=== PATIENT | male | born 1940 | race Caucasian/White ===

== ENCOUNTER 2017-08-03 08:57 | Observation (INO) ==
[2017-08-03] MEDS ORDERED: Aspirin 81 MG TAB.CHEW PO ONE (08:58)
--- NOTE | 2017-08-03 09:04 | Emergency Department Note ---
Disposition Clinical Impression: Chest pain Qualifiers: Chest pain type: unspecified Qualified Code(s): R07.9 - Chest pain, unspecified Disposition: Admitted As Inpatient Condition: Fair Referrals: David Estrada MD [Primary Care Provider] - Forms: ED Satisfaction Letter Time of Disposition: 10:12 Chest Pain HPI - General Chief Complaint: ED Chest Pain Stated Complaint: chest pain Time Seen by Provider: 08/03/17 08:58 Source: patient, EMS Mode of arrival: EMS Limitations: no limitations Vital Signs Reviewed: Yes Nursing Notes Reviewed: Yes - History of Present Illness HPI Narrative: 76-year-old male who awoke in the night with nausea developed some chest heaviness at about 2 AM. Patient has a history of previous ME had stents back in 2010. The patient states his previous ME he did not have EKG changes. States this is similar to his previous ME. Pt complaint: chest pain Onset (ago): hour(s) (7) Duration: constant Onset: during rest Pain Location: substernal, left chest Severity: moderate Quality: heaviness Pain Radiation: none Improves with: nothing Worsens with: nothing Context: history of DVT/PE, other (History of previous ME) Associated symptoms: Reports: nausea Treatments prior to arrival chest pain: none - Related Data Home Medications Medication Instructions Recorded Confirmed Aspirin 81 mg PO DAILY 09/27/15 08/03/17 Atorvastatin [Lipitor] 80 mg PO HS 09/27/15 08/03/17 Carvedilol [Coreg] 6.25 mg PO BIDWM 09/27/15 08/03/17 Lansoprazole [Prevacid] 30 mg PO DAILY 09/27/15 08/03/17 Lisinopril [Zestril] 10 mg PO DAILY 09/27/15 08/03/17 Phenytoin [Dilantin] 400 mg PO HS 09/27/15 08/03/17 Cholecalciferol (D-3) [Vitamin D] 3,000 unit PO DAILY 12/04/16 08/03/17 Fluticasone Propionate Nasal 2 spray NS BID 12/04/16 08/03/17 [Flonase] Nitroglycerin [Nitrostat] 0.4 mg SL AD PRN 12/04/16 08/03/17 Venlafaxine HCl [Venlafaxine HCl 75 mg PO DAILY 12/04/16 08/03/17 ER] Omega3,5,6,7,9 No.1/[place] Oil 2 each PO QAM 12/30/16 08/03/17 [Complete [place] Softgel] Warfarin [Coumadin] 5 mg PO SUTUTHSA 03/16/17 05/01/17 Meclizine [Antivert] 25 - 50 mg PO TID PRN 05/01/17 08/03/17 Sulfamethoxazole/Trimeth DS 1 tab PO BID 08/03/17 08/03/17 [Bactrim DS] Warfarin [Coumadin] 2.5 mg PO MOWEFR 08/03/17 08/03/17 Allergies Allergy/AdvReac Type Severity Reaction Status Date / Time morphine Allergy Hives Verified 03/16/17 18:14 Penicillins [PCN] Allergy Hives Verified 03/16/17 18:14 propoxyphene [From Darvon] Allergy Hives Verified 03/16/17 18:14 All systems ED: reviewed and negative except as stated. Constitutional: Denies: fever, chills, weakness, weight change Eyes: Denies: eye pain, eye discharge, vision change ENT ED: Denies: ear pain, throat pain, dental pain, hearing loss, epistaxis, congestion, dysphagia Cardiovascular: Reports: chest pain. Denies: palpitations, dyspnea on exertion , edema, syncope Respiratory: Denies: cough, dyspnea, wheezes, hemoptysis, stridor Gastrointestinal: Reports: nausea. Denies: abdominal pain, vomiting, diarrhea, constipation, hematemesis, melena, hematochezia Genitourinary: Denies: urgency, dysuria, frequency, hematuria Musculoskeletal: Denies: back pain, neck pain, arthralgia, myalgia Integumentary: Denies: rash, abrasion, lesions Neurological: Denies: headache, weakness, numbness, paresthesias, confusion, abnormal gait, vertigo Psychiatric: Denies: anxiety, depression, suicidal thoughts, homicidal thoughts , auditory hallucinations, visual hallucinations Endocrine: Denies: fatigue Hematological/Lymphatic: Denies: easy bleeding, easy bruising Allergic/Immunologic: Denies: facial swelling, urticaria Chest Pain PMH - Past Medical History Medical history: Reports: arthritis, CHF, coronary artery disease, DVT, GERD, hyperlipidemia, hypertension, myocardial infarction, peripheral artery disease, pulmonary embolus, seizures Surgical history: Reports: angioplasty/stent, appendectomy, cholecystectomy, knee replacement Psychiatric history: Reports: depression - Social History Smoking Status: Never smoker Alcohol use: Reports: none Drug use: Reports: none Physical Exam - General Limitations: no limitations General appearance: alert, in no apparent distress - Head Head exam: atraumatic, normocephalic, normal inspection - Eye Eye exam: Present: normal appearance, PERRL, EOMI - ENT ENT exam: normal exam, normal oropharynx, mucous membranes moist - Neck Neck exam: Present: normal inspection, full ROM, trachea midline - Chest Chest inspection: Present: normal inspection, symmetric chest wall rise - Respiratory Respiratory exam: Present: normal lung sounds bilaterally - Cardiovascular Cardiovascular exam: Present: regular rate, normal rhythm, normal heart sounds - Abdominal Exam Abdominal exam: Present: soft, Non-Tender. Absent: tenderness, distention, guarding, rebound, rigidity - Extremities Exam Extremities exam: Present: normal inspection, full ROM. Absent: tenderness, pedal edema - Expanded Lower Extremity Exam Hip/Pelvis exam: Present: normal inspection, full ROM Upper leg exam: Present: normal inspection, full ROM Knee exam: Present: normal inspection, full ROM Lower leg exam: Present: normal inspection, full ROM Ankle exam: Present: normal inspection, full ROM Foot/toe exam: Present: normal inspection, full ROM Neurovascular/Tendon exam: Absent: motor deficit, sensory deficit, tendon deficit Gait: observed and normal - Back Exam Back exam: Present: normal inspection, full ROM. Absent: tenderness - Neurological Exam Neurological exam: Present: alert, oriented X3 - Psychiatric Psychiatric exam: Present: normal affect, normal mood - Skin Skin exam: Present: warm, dry, intact, normal color Course - Reevaluation(s) Reevaluation #1: Patient presented to the ER with a questionable STEMI on initial EKG shows questionable ST segment elevation however the baseline was wondering. Multiple subsequent EKGs showed no evidence of STEMI and initial EKG here showed no evidence of STEMI. Patient's complaining of heaviness in his chest. The EKGs were all faxed to the [facility] for cardiology review on the patient's arrival. Time: 09:04 Reevaluation #2: 76-year-old with chest pain today, initial troponin was negative. CTA of the chest negative. Patient will be admitted for evaluation. Time: 11:04 - Consultations Consultation #1: EKGs were reviewed by cardiology , who states there is no STEMI treat as chest pain only. Time: 09:41 Consultation #2: Discussed with , admit. Time: 11:03 Vital Signs Temperature 98 F 08/03/17 09:05 Pulse Rate 64 08/03/17 09:05 Respiratory Rate 16 08/03/17 09:05 Blood Pressure 162/81 08/03/17 09:05 O2 Sat by Pulse Oximetry 100 08/03/17 09:05 Temperature 98 F 08/03/17 09:05 Pulse Rate 62 08/03/17 09:46 Respiratory Rate 16 08/03/17 09:46 Blood Pressure 126/64 08/03/17 09:46 O2 Sat by Pulse Oximetry 98 08/03/17 09:46 Oxygen Delivery Oxygen Delivery Nasal Cannula Chest Pain - Medical Records Medical records reviewed: Yes I reviewed the patient's medical records. - Lab Data Lab results reviewed: Yes I reviewed the patient's lab results. Lab results narrative: Chest X-Ray 08/03/17 08:58 IMPRESSION: No evidence for acute cardiopulmonary process. D/ / 08/03/2017 09:17:51 Samuel Merritt MD / yaneth Interpreting Provider: Samuel Merritt MD Result diagrams: 08/03/17 09:06 08/03/17 09:06 Lab Results 08/03/17 08/03/17 08/03/17 Range/Units 09:06 09:06 09:06 WBC 6.3 (4.3-11.1) K/mcL RBC 4.13 L (4.19-5.50) M/mcL Hgb 12.6 L (12.9-16.9) g/dL Hct 36.1 L (37.5-50.1) % MCV 87.4 (83.0-100.0) fL MCH 30.5 (28.0-33.3) pg MCHC 34.9 (31.6-35.5) g/dL RDW 13.3 (11.5-14.5) % Plt Count 248 (140-400) K/mcL MPV 8.8 L (9.4-12.4) fL Immature Gran % 0.3 (0-4) % Seg Neutrophils % 51.8 % Lymphocytes % 34.2 % Monocytes % 9.2 % Eosinophils % 4.3 % Basophils % 0.2 % Neutrophils # 3.3 (1.6-8.9) K/mcL Lymphocytes # 2.2 (0.6-4.6) K/mcL Monocytes # 0.6 (0.0-1.3) K/mcL Eosinophils # 0.3 (0.0-0.6) K/mcL Basophils # 0.0 (0.0-0.2) K/mcL Immature Plt Fraction 2.0 (1.1-6.1) % PT 20.8 H (9.4-12.1) Seconds INR 1.9 APTT 32.3 (26.0-36.0) Seconds D-Dimer 1031 H (0-500) ng/mLFEU Sodium 131 L (136-145) mEq/L Potassium 4.7 H (3.5-4.5) mEq/L Chloride 100 (98-109) mEq/L Carbon Dioxide 24 (19-29) mEq/L BUN 15 (8-26) mg/dL Creatinine 1.00 (0.72-1.25) mg/dL Est GFR ( Amer) > 60 (> 60) Est GFR (Non-Af Amer) > 60 (> 60) BUN/Creatinine Ratio 15 (6-26) Glucose 85 (70-99) mg/dL Calculated Osmolality 272 L (280-300) Calcium 9.1 (8.6-10.8) mg/dL Troponin I (0-0.03) ng/mL 08/03/17 Range/Units 09:06 WBC (4.3-11.1) K/mcL RBC (4.19-5.50) M/mcL Hgb (12.9-16.9) g/dL Hct (37.5-50.1) % MCV (83.0-100.0) fL MCH (28.0-33.3) pg MCHC (31.6-35.5) g/dL RDW (11.5-14.5) % Plt Count (140-400) K/mcL MPV (9.4-12.4) fL Immature Gran % (0-4) % Seg Neutrophils % % Lymphocytes % % Monocytes % % Eosinophils % % Basophils % % Neutrophils # (1.6-8.9) K/mcL Lymphocytes # (0.6-4.6) K/mcL Monocytes # (0.0-1.3) K/mcL Eosinophils # (0.0-0.6) K/mcL Basophils # (0.0-0.2) K/mcL Immature Plt Fraction (1.1-6.1) % PT (9.4-12.1) Seconds INR APTT (26.0-36.0) Seconds D-Dimer (0-500) ng/mLFEU Sodium (136-145) mEq/L Potassium (3.5-4.5) mEq/L Chloride (98-109) mEq/L Carbon Dioxide (19-29) mEq/L BUN (8-26) mg/dL Creatinine (0.72-1.25) mg/dL Est GFR ( Amer) (> 60) Est GFR (Non-Af Amer) (> 60) BUN/Creatinine Ratio (6-26) Glucose (70-99) mg/dL Calculated Osmolality (280-300) Calcium (8.6-10.8) mg/dL Troponin I 0.00 (0-0.03) ng/mL - Radiology Data Radiology results reviewed: Yes I reviewed the patient's radiology results. Chest X-Ray 08/03/17 08:58 IMPRESSION: No evidence for acute cardiopulmonary process. D/ / 08/03/2017 09:17:51 Samuel Merritt MD / yaneth Interpreting Provider: Samuel Merritt MD Chest X-Ray 08/03/17 08:58 IMPRESSION: No evidence for acute cardiopulmonary process. D/ / 08/03/2017 09:17:51 Samuel Merritt MD / yaneth Interpreting Provider: Samuel Merritt MD Chest CTA 08/03/17 10:28 IMPRESSION: No evidence of pulmonary embolism or acute pulmonary abnormality. D/ / Ani Luz Cha, MD / Ani Luz Cha, MD Interpreting Provider: Ani Luz Cha, MD - EKG Data EKG attestation: Yes I reviewed and interpreted this EKG. EKG shows normal: sinus rhythm Rhythm: NSR [place]/QRS: normal Heart block present: 1st Degree Interpretation: no acute changes Heart Score - Score History: Moderately Suspicious EKG: Non Specific repolarisation Disturbance Age: Greater than 65 Risk Factors: Equal/Greater than 3 risk factor or history of atherosclerotic disease Troponin: Less than normal limit HEART Score Total: 6
[2017-08-03 09:14] LABS: Basophils % 0.2 %; Eosinophils # 0.3 K/mcL (0.0-0.6); Eosinophils % 4.3 %; Hematocrit 36.1 % (37.5-50.1); Hemoglobin 12.6 g/dL (12.9-16.9); Immature Granulocytes % 0.3 % (0-4); Lymphocytes # 2.2 K/mcL (0.6-4.6); Lymphocytes % 34.2 %; Mean Corpuscular HGB Conc 34.9 g/dL (31.6-35.5); Mean Corpuscular Hemoglobin 30.5 pg (28.0-33.3); Mean Corpuscular Volume 87.4 fL (83.0-100.0); Mean Platelet Volume 8.8 fL (9.4-12.4); Monocytes # 0.6 K/mcL (0.0-1.3); Monocytes % 9.2 %; Neutrophils # 3.3 K/mcL (1.6-8.9); Platelet Count 248 K/mcL (140-400); Red Blood Count 4.13 M/mcL (4.19-5.50); Red Cell Distribution Width 13.3 % (11.5-14.5); Segmented Neutrophils % 51.8 %
[2017-08-03 09:25] LABS: BUN/Creatinine Ratio 15 (6-26); Blood Urea Nitrogen 15 mg/dL (8-26); Calcium 9.1 mg/dL (8.6-10.8); Carbon Dioxide 24 mEq/L (19-29); Chloride 100 mEq/L (98-109); Glucose 85 mg/dL (70-99); Osmolality,Calculated 272 (280-300); Potassium 4.7 mEq/L (3.5-4.5); Sodium 131 mEq/L (136-145); eGFR For African Americans > 60 (> 60); eGFR For Non-African Americans > 60 (> 60)
[2017-08-03 09:34] LABS: INR 1.9; Prothrombin Time 20.8 Seconds (9.4-12.1)
[2017-08-03 09:37] LABS: Activated Partial Thrombo Time 32.3 Seconds (26.0-36.0)
[2017-08-03] MEDS ORDERED: Naloxone 0.4 MG/ML INJ IVP PRN (11:13)
[2017-08-03] MEDS ORDERED: Acetaminophen 325 MG TABLET PO PRN (11:13)
[2017-08-03] MEDS ORDERED: Nitroglycerin 0.4 MG TAB.SUBL SL PRN (11:15)
--- NOTE | 2017-08-03 11:29 | Internal Med History&Physical ---
<Zarina Trotter M - Last Filed: 08/03/17 11:25> Date of Encounter: 08/03/17 Time of Encounter: 11:25 Assessment and Plan (1) Chest pain Current visit: Yes Status: Acute Patient reports waking at 2 am this morning with nausea and burning chest heaviness. Patient has history of CAD s/p stent placement and a history of PE. EKG was reviewed by Dr. Crouch of cardiology and determine to be non-ischemic. Troponin was negative at 0.00. D-dimer was elevated to 1031 and a CTA was obtained, which was negative for PE. 325mg of aspirin given in ED. Continue home dose of aspirin, statin, beta reny. 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 echocardiogram and stress test in the morning NPO after midnight and hold morning beta reny for stress testing. Qualifiers: Chest pain type: precordial pain Qualified Code(s): R07.2 - Precordial pain (2) Hypertension Current visit: Yes Status: Acute Holding lisinopril for mild hyperkalemia. Continue home dose of metoprolol, though hold morning dose for stress test. Hydralazine 10mg IVP Q6h prn Qualifiers: Hypertension type: essential hypertension Qualified Code(s): I10 - Essential (primary) hypertension (3) Prostatitis Current visit: Yes Status: Acute Patient was recently diagnosed with chronic prostatitis and is on a 21 day course of Bactrim. Continue bactrim BID. Qualifiers: Prostatitis type: chronic Qualified Code(s): N41.1 - Chronic prostatitis (4) Anticoagulated on Coumadin Current visit: Yes Status: Acute Patient is on coumadin for history of DVT and PE. INR was mildy sub therapeutic today at 1.9. Check PT/INR/PTT daily. Pharmacy to dose coumadin. (5) DVT prophylaxis Current visit: Yes Status: Acute Anti-embolic stockings Patient on coumadin for history of DVT and PE, additional pharmacologic prophylaxis not warranted. Internal Medicine - H&P: HPI Chief complaint: chest pain Admitted From: Emergency Dept Plans for Post Hospital Care: Home History of present illness: Mr. Tadeo is a 76 year old male with hypertension, hyperlipidemia, seizure disorder, history of coronary artery disease status post stent placement, history of pulmonary embolism on Coumadin presented to the emergency department today with complaints of chest pain. Patient reports that he woke up at 2 AM with nausea, chest heaviness. This persisted and he called the squad in the morning. Patient states that chest pain has resolved at this time. He describes the pain as heaviness, and center of his chest, nonradiating. He denies lightheadedness, shortness of breath or palpitations. He has abdominal pain that he attributes to prostatitis. He denies any vomiting, diarrhea, fever , chills or sweats. Evaluation in emergency department included an EKG which revealed was reviewed by Dr. Crouch in cardiology and interpreted to be sinus rhythm with first-degree block, no ST elevations. Chest x-ray showed no evidence of acute cardiopulmonary process. Troponin was negative at 0.00. INR was 1.9. He is mildly hyperkalemic with potassium of 4.7. D-dimer was elevated at 1031, so a CTA was obtained,which was negative for PE. On exam, patient is alert and oriented, in no acute distress. Heart has regular rate and rhythm, lungs are clear bilaterally to auscultation. Abdomen is soft and nontender. No peripheral edema, peripheral pulses intact. Past Med Surg Social Fam HX - Past Medical History Medical history: arthritis, CHF, coronary artery disease, DVT, GERD, hyperlipidemia, hypertension, myocardial infarction, peripheral artery disease, pulmonary embolus, seizures Psychiatric history: depression - Past Surgical History Surgical History: angioplasty/stent, appendectomy, cholecystectomy, knee replacement - Social History Smoking Status: Never smoker Smokeless Tobacco Status: No Alcohol use: none Drug use: none - Family History Mother Living Status: Hx Family Cardiac Disorders: Yes Hx Family Respiratory Disorders: No Hx Family Cancer: No Hx Family GI Disorders: No Hx Family Endocrine Disorder: No Hx Family Neuromuscular Disorders: No Hx Family Neurologic Disorders: No Hx Family HEENT Disorders: No Hx Family Autoimmune Disorders: No Father Living Status: Hx Family Cardiac Disorders: Yes Internal Medicine - H&P: Meds Aspirin 81 mg PO DAILY 09/27/15 [History] Atorvastatin [Lipitor] 80 mg PO HS 09/27/15 [History] Carvedilol [Coreg] 6.25 mg PO BIDWM 09/27/15 [History] Lansoprazole [Prevacid] 30 mg PO DAILY 09/27/15 [History] Lisinopril [Zestril] 10 mg PO DAILY 09/27/15 [History] Phenytoin [Dilantin] 400 mg PO HS 09/27/15 [History] Cholecalciferol (D-3) [Vitamin D] 3,000 unit PO DAILY 12/04/16 [History] Fluticasone Propionate Nasal [Flonase] 2 spray NS BID 12/04/16 [History] Nitroglycerin [Nitrostat] 0.4 mg SL AD PRN 12/04/16 [History] Venlafaxine HCl [Venlafaxine HCl ER] 75 mg PO DAILY 12/04/16 [History] Omega3,5,6,7,9 No.1/[place] Oil [Complete [place] Softgel] 2 each PO QAM 12/30/16 [ History] Warfarin [Coumadin] 5 mg PO SUTUTHSA 03/16/17 [History] Meclizine [Antivert] 25 - 50 mg PO TID PRN 05/01/17 [History] Finasteride [Proscar] 5 mg PO DAILY 08/03/17 [History] Sulfamethoxazole/Trimeth DS [Bactrim DS] 1 tab PO BID 08/03/17 [History] Tamsulosin HCl [Flomax] 0.4 mg PO DAILY 08/03/17 [History] Warfarin [Coumadin] 2.5 mg PO MOWEFR 08/03/17 [History] 3 Allergy/AdvReac Type Severity Reaction Status Date / Time morphine Allergy Hives Verified 03/16/17 18:14 Penicillins [PCN] Allergy Hives Verified 03/16/17 18:14 propoxyphene [From Darvon] Allergy Hives Verified 03/16/17 18:14 All Systems PM: A 10-system review of systems was performed and is negative for pertinent findings except as documented above in the HPI. - Constitutional Constitutional: no chills, no fever(s), no night sweats - EENT Eyes: no change in vision, no discharge, no pain, no photophobia Ears: no ear discharge, no ear pain, no tinnitus Nose, mouth and throat: no dysphagia, no nasal discharge, no neck pain, no sore throat - Cardiovascular Cardiovascular ROS IM: chest pain, no diaphoresis, no dyspnea, no lightheadedness, no palpitations, no syncope - Respiratory Respiratory: no cough, no dyspnea, no wheezing, no excessive phlegm production - Gastrointestinal Gastrointestinal: nausea, no abdominal pain, no diarrhea, no hematemesis, no hematochezia, no melena, no vomiting - Musculoskeletal Musculoskeletal ROS IM: no numbness, no tingling - Integumentary Integumentary IM: no rash, no unusual bruising - Neurological Neurological ROS: no confusion, no convulsions, no focal weakness, no numbness, no tingling, no tremor(s) - Hematologic/Lymphatic Hematologic/Lymphatic: no easy bruising - Constitutional Vitals: Temp Pulse Resp BP Pulse Ox 98 F 62 16 135/67 99 08/03/17 09:05 08/03/17 11:14 08/03/17 11:14 08/03/17 11:14 08/03/17 11:14 General appearance: Present: A&O X 3, pleasant, no acute distress - Head Head exam: Present: atraumatic, normocephalic - Eye Eye exam: Present: PERRL, conjuntiva pink, sclera anicteric Pupils: Present: PERRL - Neck Neck exam general surgery: Present: supple, trachea midline. Absent: lymphadenopathy - Respiratory Respiratory exam: Present: CTAB. Absent: accessory muscle use, rales, rhonchi, wheezes - Cardiovascular Cardiovascular exam: Present: RRR, +S1, +S2. Absent: diastolic murmur, gallop, rubs, systolic murmur - GI/Abdominal GI/Abdominal exam: Present: normal bowel sounds, soft, no peritoneal signs. Absent: distended, tenderness - Extremities Exam Extremities exam: Present: warm, radial pulses palpable and symmetrical. Absent : calf tenderness, cyanotic, pedal edema - Neurological Exam Neurological exam: Present: CN II-XII intact, oriented X3, no focal deficits. Absent: pronater drift, facial droop, speech deficit - Skin Skin exam: Present: dry, intact Internal Med - H&P Results - Labs CBC & Chem 7: 08/03/17 09:06 08/03/17 09:06 Labs: All Lab Results (24 Hours) 08/03/17 08/03/17 08/03/17 Range/Units 09:06 09:06 09:06 WBC 6.3 (4.3-11.1) K/mcL RBC 4.13 L (4.19-5.50) M/mcL Hgb 12.6 L (12.9-16.9) g/dL Hct 36.1 L (37.5-50.1) % MCV 87.4 (83.0-100.0) fL MCH 30.5 (28.0-33.3) pg MCHC 34.9 (31.6-35.5) g/dL RDW 13.3 (11.5-14.5) % Plt Count 248 (140-400) K/mcL MPV 8.8 L (9.4-12.4) fL Immature Gran % 0.3 (0-4) % Seg Neutrophils % 51.8 % Lymphocytes % 34.2 % Monocytes % 9.2 % Eosinophils % 4.3 % Basophils % 0.2 % Neutrophils # 3.3 (1.6-8.9) K/mcL Lymphocytes # 2.2 (0.6-4.6) K/mcL Monocytes # 0.6 (0.0-1.3) K/mcL Eosinophils # 0.3 (0.0-0.6) K/mcL Basophils # 0.0 (0.0-0.2) K/mcL Immature Plt Fraction 2.0 (1.1-6.1) % PT 20.8 H (9.4-12.1) Seconds INR 1.9 APTT 32.3 (26.0-36.0) Seconds D-Dimer 1031 H (0-500) ng/mLFEU Sodium 131 L (136-145) mEq/L Potassium 4.7 H (3.5-4.5) mEq/L Chloride 100 (98-109) mEq/L Carbon Dioxide 24 (19-29) mEq/L BUN 15 (8-26) mg/dL Creatinine 1.00 (0.72-1.25) mg/dL Est GFR ( Amer) > 60 (> 60) Est GFR (Non-Af Amer) > 60 (> 60) BUN/Creatinine Ratio 15 (6-26) Glucose 85 (70-99) mg/dL Calculated Osmolality 272 L (280-300) Calcium 9.1 (8.6-10.8) mg/dL Troponin I (0-0.03) ng/mL 08/03/17 Range/Units 09:06 WBC (4.3-11.1) K/mcL RBC (4.19-5.50) M/mcL Hgb (12.9-16.9) g/dL Hct (37.5-50.1) % MCV (83.0-100.0) fL MCH (28.0-33.3) pg MCHC (31.6-35.5) g/dL RDW (11.5-14.5) % Plt Count (140-400) K/mcL MPV (9.4-12.4) fL Immature Gran % (0-4) % Seg Neutrophils % % Lymphocytes % % Monocytes % % Eosinophils % % Basophils % % Neutrophils # (1.6-8.9) K/mcL Lymphocytes # (0.6-4.6) K/mcL Monocytes # (0.0-1.3) K/mcL Eosinophils # (0.0-0.6) K/mcL Basophils # (0.0-0.2) K/mcL Immature Plt Fraction (1.1-6.1) % PT (9.4-12.1) Seconds INR APTT (26.0-36.0) Seconds D-Dimer (0-500) ng/mLFEU Sodium (136-145) mEq/L Potassium (3.5-4.5) mEq/L Chloride (98-109) mEq/L Carbon Dioxide (19-29) mEq/L BUN (8-26) mg/dL Creatinine (0.72-1.25) mg/dL Est GFR ( Amer) (> 60) Est GFR (Non-Af Amer) (> 60) BUN/Creatinine Ratio (6-26) Glucose (70-99) mg/dL Calculated Osmolality (280-300) Calcium (8.6-10.8) mg/dL Troponin I 0.00 (0-0.03) ng/mL - Diagnostic Studies Chest x-ray Additional comments: Chest X-Ray 08/03/17 08:58 IMPRESSION: No evidence for acute cardiopulmonary process. D/ / 08/03/2017 09:17:51 Samuel Merritt MD / yaneth Interpreting Provider: Samuel Merritt MD CT scan - chest Additional comments: Chest CTA 08/03/17 10:28 IMPRESSION: No evidence of pulmonary embolism or acute pulmonary abnormality. D/ / Ani Luz Cha, MD / Ani Luz Cha, MD Interpreting Provider: Ani Luz Cha, MD <Benito Spencer - Last Filed: 08/03/17 12:03> Date of Encounter: 08/03/17 Internal Medicine - H&P: HPI History of present illness: Mr. Tadeo is a 76 year old male All Systems PM: A 10-system review of systems was performed and is negative for pertinent findings except as documented above in the HPI. - Constitutional Vitals: Temp Pulse Resp BP Pulse Ox 98 F 62 16 135/67 99 08/03/17 09:05 08/03/17 11:14 08/03/17 11:14 08/03/17 11:14 08/03/17 11:14 Internal Med - H&P Results - Labs CBC & Chem 7: 08/03/17 09:06 08/03/17 09:06 - Attending Attestation I have personally performed a face to face evaluation on this patient. I have reviewed and agree with the care plan. History and Exam by me shows: Mr. Vargas is a 76-year-old gentleman with a history of PTE on Coumadin, CAD s/ p NV and stenting in 2010 , presents with chest pain evaluation. He is established with Dr. Cooper of cardiology at [facility]. He describes first experiencing chest heaviness yesterday evening associated with nausea. This persisted until this morning when he continued to have heaviness in the chest on waking up from bed. Weight 5 out of 10, no radiation , nonexertional, burning heaviness in character. On review he notes that he is currently being treated for prostatitis by the primary care doctor and has been on Bactrim for the last 20 days. He reports plan of care for 28 days of Bactrim EKG personally reviewed with first-degree heart block, rate 63 ROS 14 point review of systems reviewed as best as possible given presentation. Pertinent positive or negative as per HPI or otherwise reviewed as negative General - AAO x 3 Psych - Appropriate affect/speech. No agitation Eyes - NIKOLE. Eye lids intact. No scleral icterus Neuro - No gross peripheral or central neuro deficits with intact CN 2-12 exam Heart - Sinus. RRR. S1 and S2 present. No added HS/murmurs appreciated. No elevated JVD appreciated. Lung - Adequate air entry b/l, No crackles/wheezes appreciated GI - Soft, non-tender. No hepatosplenomegaly/ascites. BS+ - No CVA/suprapubic tenderness or palpable bladder distension Skin - Intact. No rash/petechiae/ecchymosis. Warm extremities MSK - Joints with normal ROM. No joint swellings A/P Chest pain eval High risk hx - trend trop, stress testing Prostatitis - continue bactrim
[2017-08-03] MEDS ORDERED: *HR* Warfarin 5 MG TABLET PO ONE (18:00)
[2017-08-03] MEDS ORDERED: Warfarin perPT PO PRN (18:00)
[2017-08-03] MEDS: Sulfamethoxazole/Trimeth DS 1 EACH TABLET PO SCH (20:53)
[2017-08-03] MEDS: Benzocaine 20% 9 GM GEL..GRAM. TP PRN (22:46)
[2017-08-04 05:09] LABS: Basophils % 0.3 %; Eosinophils # 0.2 K/mcL (0.0-0.6); Hematocrit 34.6 % (37.5-50.1); Hemoglobin 12.4 g/dL (12.9-16.9); Immature Granulocytes % 0.1 % (0-4); Lymphocytes # 2.4 K/mcL (0.6-4.6); Mean Corpuscular HGB Conc 35.8 g/dL (31.6-35.5); Mean Corpuscular Hemoglobin 31.6 pg (28.0-33.3); Mean Corpuscular Volume 88.3 fL (83.0-100.0); Mean Platelet Volume 9.3 fL (9.4-12.4); Monocytes # 0.7 K/mcL (0.0-1.3); Monocytes % 9.8 %; Neutrophils # 3.7 K/mcL (1.6-8.9); Platelet Count 228 K/mcL (140-400); Red Blood Count 3.92 M/mcL (4.19-5.50); Red Cell Distribution Width 13.5 % (11.5-14.5); Segmented Neutrophils % 52.8 %
[2017-08-04 05:25] LABS: BUN/Creatinine Ratio 15 (6-26); Blood Urea Nitrogen 15 mg/dL (8-26); Calcium 9.1 mg/dL (8.6-10.8); Carbon Dioxide 25 mEq/L (19-29); Chloride 103 mEq/L (98-109); Chol/HDL Ratio 3.8 (0-4.9); Cholesterol 194 mg/dL (< 200); Glucose 77 mg/dL (70-99); HDL Cholesterol 51 mg/dL (40-59); LDL Cholesterol,Calculated 126 mg/dL (0-99); Osmolality,Calculated 278 (280-300); Potassium 4.4 mEq/L (3.5-4.5); Sodium 134 mEq/L (136-145); Triglycerides 85 mg/dL (< 150); eGFR For African Americans > 60 (> 60); eGFR For Non-African Americans > 60 (> 60)
[2017-08-04 05:30] LABS: INR 1.9; Prothrombin Time 20.4 Seconds (9.4-12.1)
[2017-08-04 05:32] LABS: Activated Partial Thrombo Time 33.4 Seconds (26.0-36.0)
[2017-08-04] MEDS ORDERED: Regadenoson 0.4 MG/5 ML SYRINGE IVP ONE (05:48)
[2017-08-04] MEDS: Benzocaine 20% 9 GM GEL..GRAM. TP PRN (06:06)
[2017-08-04] MEDS ORDERED: Ondansetron 4 MG/2 ML VIAL IVP PRN (06:11)
[2017-08-04] MEDS ORDERED: Venlafaxine XR (24 HR) 75 MG CAP.ER.24H PO SCH (09:00)
[2017-08-04] MEDS ORDERED: Aspirin 81 MG TAB.CHEW PO SCH (09:00)
[2017-08-04] MEDS: Sulfamethoxazole/Trimeth DS 1 EACH TABLET PO SCH (09:31)
[2017-08-04 10:54] VITALS: BP 132/67
--- NOTE | 2017-08-04 10:54 | Nuclear Medicine Stress Report ---
Regadenoson Nuclear Stress Name: Mahesh Tadeo Date of Study: 08/04/2017 Date: 1940 Ht: 70.0 in Medical Record#: [id number] Age: 76 Wt: 181.0 lb Gender: Male Order #: [id number] Location: [facility] Room: [facility] Supervising Provider: Deepa Duggan CNP Reading Physician: Wali Norman DO, FACC, FASNC Ordering Physician: Chiquita Street CNP Stress Technologist: Natasha Rogers, SUSIE Tile Power Shear Operator: Homero Blanchard Indications: Chest Pain Impression: Pharmacologic stress ECG is negative for ischemia at level of heart rate achieved. Gated EF = 67%. Perfusion imaging was negative for ischemia or infarct. History: Hypertension Diabetes Hypercholesteremia Prior PCI Stress Test Summary: Stress Test Type: Pharmacologic Regadenoson 0.4mg/5ml given IV Baseline Information: Initial Heart Rate: 67 Blood Pressure: 126/84 Stress Information: Test Terminated Due to (primary): As per protocol Maximum Blood Pressure: 128/62 Maximum Heart Rate: 95 Percent Maximum Heart Rate Achieved: 66 Double Product: [id number] METS Reached: 1 Symptoms: Nausea Nuclear Summary: SPECT myocardial perfusion imaging using Tc99m Sestamibi given intravenously was performed at rest and following cardiac stress testing. The resting images were obtained following initial dose of 11.4 mCi. Following stress an additional dose of 34.7 mCi was given at peak exercise or 30 seconds post regadenoson infusion. Medication Given: Time Medication Dose Units Route Findings: Stress Note * Resting ECG demonstrated normal sinus rhythm. * No baseline arrhythmias were noted. * Pharmacologic stress ECG is negative for ischemia at level of heart rate achieved. * No arrhythmias were noted during stress. * Patient had no chest pain during stress. * Normal hemodynamic responses to pharmacologic stress. Study Quality * Study quality is average. Gated EF % * Gated EF = 67%. Left Ventricle * The left ventricle is not dilated. LVEDV = 82 mL. NORMALS * Normal wall motion. * Normal segmental perfusion in rest. * Normal segmental perfusion in stress. TID * No evidence of transient ischemic dilatation. TID ratio = 1.18. Lung Uptake * There is no evidence of increase lung uptake. Updated by Wali Norman DO, FACC, FASE, FASNC on 08/04/2017 10:45:46 AM
--- NOTE | 2017-08-04 11:31 | Discharge Summary ---
Date of Encounter: 08/04/17 Time of Encounter: 11:29 - Discharge Diagnosis (1) Chest pain Priority: Primary Status: Resolved Qualifiers: Chest pain type: precordial pain Qualified Code(s): R07.2 - Precordial pain (2) Anticoagulated on Coumadin Priority: Secondary Status: Acute (3) DVT prophylaxis Priority: Secondary Status: Acute (4) Hypertension Priority: Secondary Status: Acute Qualifiers: Hypertension type: essential hypertension Qualified Code(s): I10 - Essential (primary) hypertension (5) Prostatitis Priority: Secondary Status: Acute Qualifiers: Prostatitis type: chronic Qualified Code(s): N41.1 - Chronic prostatitis - Discharge Medications Home Medications: Aspirin 81 mg PO DAILY 09/27/15 [History] Atorvastatin [Lipitor] 80 mg PO HS 09/27/15 [History] Carvedilol [Coreg] 6.25 mg PO BIDWM 09/27/15 [History] Lansoprazole [Prevacid] 30 mg PO DAILY 09/27/15 [History] Lisinopril [Zestril] 10 mg PO DAILY 09/27/15 [History] Phenytoin [Dilantin] 400 mg PO HS 09/27/15 [History] Cholecalciferol (D-3) [Vitamin D] 3,000 unit PO DAILY 12/04/16 [History] Fluticasone Propionate Nasal [Flonase] 2 spray NS BID 12/04/16 [History] Nitroglycerin [Nitrostat] 0.4 mg SL AD PRN 12/04/16 [History] Venlafaxine HCl [Venlafaxine HCl ER] 75 mg PO DAILY 12/04/16 [History] Omega3,5,6,7,9 No.1/[place] Oil [Complete [place] Softgel] 2 each PO QAM 12/30/16 [ History] Warfarin [Coumadin] 5 mg PO SUTUTHSA 03/16/17 [History] Meclizine [Antivert] 25 - 50 mg PO TID PRN 05/01/17 [History] Finasteride [Proscar] 5 mg PO DAILY 08/03/17 [History] Sulfamethoxazole/Trimeth DS [Bactrim Ds] 1 tab PO BID 08/03/17 [History] Tamsulosin HCl [Flomax] 0.4 mg PO DAILY 08/03/17 [History] Warfarin [Coumadin] 2.5 mg PO MOWEFR 08/03/17 [History] Allergies/Adverse Reactions: 3 Allergy/AdvReac Type Severity Reaction Status Date / Time morphine Allergy Hives Verified 03/16/17 18:14 Penicillins [PCN] Allergy Hives Verified 03/16/17 18:14 propoxyphene [From Darvon] Allergy Hives Verified 03/16/17 18:14 Procedures/tests Complete & Pending: Procedures Performed prior 72 hours Category Date Time Status NM stef perf SPECT multi [NM] Routine Exams 08/03/17 11:18 Taken EV echocardiogram Routine Y 08/03/17 11:18 Completed SP pharm nuclear stress Routine Y 08/04/17 07:00 Completed Date of admission: 08/03/17 11:11 Primary care physician: David Estrada MD Discharging clinician: Marvin Garza Anticipated date of discharge: 08/04/17 - Patient Status Disposition: Home, Self-Care Condition: Good Functional capacity at discharge: independent ambulation Overall status at discharge: patient is progressing back to baseline - Discharge Instructions Instructions: Chest Pain (DC) Follow Up With: David Estrada MD [Primary Care Provider] - 08/12/17 11:30 am (in 1 week) - Diet and Activity Activity: increase activity as tolerated Diet: low fat, low cholesterol, low salt diet Hospital course: Mr. Tadeo is a 76 year old male patient with history of hypertension, hyperlipidemia, coronary artery disease, prior pulmonary embolism, was hospitalized here after presenting with an episode of nausea and chest heaviness. His EKG showed first-degree AV block without any ST segment changes. His troponins were trended and but negative. He underwent cardiac stress test today. His stress test was negative for ischemia or infarct. He is feeling much better today and does not have any chest pain. 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 This could be contributing to his chest pain. He is clinically stable to be discharged home. 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 - Time Spent with Patient Total time spent providing and/or coordinating discharge services: Less than 30 minutes (20 min) - Constitutional Vitals: Temp Pulse Resp BP Pulse Ox 97.8 F 72 16 132/67 95 08/04/17 10:51 08/04/17 10:51 08/04/17 10:51 08/04/17 10:51 08/04/17 10:51 General appearance: Present: A&O X 3, pleasant, no acute distress, answers questions appropriately - Respiratory Respiratory exam: Present: CTAB. Absent: accessory muscle use, rales, rhonchi, wheezes - Cardiovascular Cardiovascular exam: Present: RRR, +S1, +S2. Absent: diastolic murmur, gallop, rubs, systolic murmur - GI/Abdominal GI/Abdominal exam: Present: normal bowel sounds, soft, no peritoneal signs. Absent: distended, tenderness - Extremities Exam Extremities exam: Present: warm, radial pulses palpable and symmetrical. Absent : calf tenderness, cyanotic, pedal edema
--- NOTE | 2017-08-04 20:08 | Electrocardiograph Report ---
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
== END 2017-08-04 12:49 | disposition home or self-care (01) ==
LOC: 3BNU 08:57 → EMEROO 08:57 → SUATTDRO 11:11 → 3BNU 12:06
PROVIDERS: ADMIT Internal Medicine Hematology & Oncology; ATTEND Internal Medicine

== ENCOUNTER 2021-05-19 22:16 | Inpatient (IN) ==
[2021-05-20] MEDS ORDERED: Naloxone 0.4 MG/ML INJ IVP PRN (00:28)
[2021-05-20] MEDS ORDERED: Melatonin 3 MG TABLET PO PRN (00:28)
[2021-05-20] MEDS ORDERED: Ondansetron 4 MG/2 ML VIAL IVP PRN (00:28)
[2021-05-20] MEDS: 0.9 % Sodium Chloride 1,000 ML IVC SCH ×2 (00:52→14:50)
[2021-05-20 01:02] LABS: Basophils % 0.3 %; Eosinophils # 0.1 K/mcL (0.0-0.6); Eosinophils % 1.7 %; Hematocrit 32.7 % (37.5-50.1); Hemoglobin 11.2 g/dL (12.9-16.9); Immature Granulocytes % 0.3 % (0-4); Lymphocytes # 2.9 K/mcL (0.6-4.6); Lymphocytes % 37.2 %; Mean Corpuscular HGB Conc 34.3 g/dL (31.6-35.5); Mean Corpuscular Hemoglobin 30.1 pg (28.0-33.3); Mean Corpuscular Volume 87.9 fL (83.0-100.0); Mean Platelet Volume 9.5 fL (9.4-12.4); Monocytes # 0.7 K/mcL (0.0-1.3); Monocytes % 9.3 %; Platelet Count 222 K/mcL (140-400); Red Blood Count 3.72 M/mcL (4.19-5.50); Red Cell Distribution Width 13.2 % (11.5-14.5); Segmented Neutrophils % 51.2 %; White Blood Count 7.8 K/mcL (4.3-11.1)
[2021-05-20 01:15] LABS: BUN/Creatinine Ratio 14 (6-26); Blood Urea Nitrogen 17 mg/dL (8-23); Calcium 8.7 mg/dL (8.6-10.3); Carbon Dioxide 22 mEq/L (23-29); Chloride 99 mEq/L (98-107); Chol/HDL Ratio 5.2 (0-4.9); Cholesterol 199 mg/dL (< 200); Glucose 93 mg/dL (70-105); HDL Cholesterol 38 mg/dL (40-59); LDL Cholesterol,Calculated 140 mg/dL (< 100); Magnesium 1.7 mg/dL (1.6-2.6); Osmolality,Calculated 263 (280-300); Potassium 4.7 mEq/L (3.5-5.1); Sodium 126 mEq/L (136-145); Triglycerides 103 mg/dL (< 150); eGFR For African Americans > 60 (> 60); eGFR For Non-African Americans 59 (> 60)
[2021-05-20 01:24] LABS: INR 3.6; Prothrombin Time 40.5 Seconds (9.4-12.1)
[2021-05-20 02:51] LABS: Bilirubin,Urine Negative (Negative); Blood,Urine Trace (Negative); Clarity,Urine Clear (Clear); Color,Urine Colorless (Yellow); Glucose,Urine (UA) Normal (Normal); Ketones,Urine Negative (Negative); Leukocyte Esterase,Urine Negative (Negative); Mucus,Urine Few per lpf (None-Few); Nitrite,Urine Negative (Negative); PH,Urine 6.5 pH Units (5.0-8.0); Protein,Urine Negative (Neg-Trace); RBC,Urine 0-3 per hpf (0-3); Specific Gravity,Urine 1.006 (1.010-1.025); Urobilinogen,Urine Normal (Normal); WBC,Urine 0-3 per hpf (0-3)
[2021-05-20] MEDS: carvediloL 6.25 MG TABLET PO SCH ×2 (09:18→16:47)
[2021-05-20] MEDS: Fluticasone Propionate Nasal 50 MCG/SPRAY BOTTLE NS SCH ×2 (09:18→20:57)
[2021-05-20] MEDS ORDERED: Warfarin perPT PO PRN (18:00)
[2021-05-20] MEDS: *HR* LORazepam 0.5 MG TABLET PO SCH (20:57)
[2021-05-21 00:37] LABS: INR 3.3
[2021-05-21] MEDS: carvediloL 6.25 MG TABLET PO SCH ×2 (07:43→16:32)
[2021-05-21] MEDS: Fluticasone Propionate Nasal 50 MCG/SPRAY BOTTLE NS SCH ×2 (07:43→20:55)
[2021-05-21] MEDS ORDERED: *HR* Warfarin 1 MG TABLET PO ONE (18:00)
[2021-05-21] MEDS: *HR* LORazepam 0.5 MG TABLET PO SCH (20:55)
[2021-05-21] MEDS: Acetaminophen 325 MG TABLET PO PRN (23:30)
[2021-05-22 00:21] LABS: Basophils % 0.2 %; Eosinophils # 0.1 K/mcL (0.0-0.6); Eosinophils % 0.9 %; Hematocrit 33.1 % (37.5-50.1); Hemoglobin 11.5 g/dL (12.9-16.9); Immature Granulocytes % 0.3 % (0-4); Lymphocytes # 3.4 K/mcL (0.6-4.6); Lymphocytes % 29.7 %; Mean Corpuscular HGB Conc 34.7 g/dL (31.6-35.5); Mean Corpuscular Hemoglobin 30.5 pg (28.0-33.3); Mean Corpuscular Volume 87.8 fL (83.0-100.0); Mean Platelet Volume 9.2 fL (9.4-12.4); Monocytes # 1.1 K/mcL (0.0-1.3); Monocytes % 9.2 %; Neutrophils # 6.9 K/mcL (1.6-8.9); Platelet Count 248 K/mcL (140-400); Red Blood Count 3.77 M/mcL (4.19-5.50); Red Cell Distribution Width 13.2 % (11.5-14.5); Segmented Neutrophils % 59.7 %; White Blood Count 11.5 K/mcL (4.3-11.1)
[2021-05-22 00:23] LABS: INR 2.1; Prothrombin Time 23.6 Seconds (9.4-12.1)
[2021-05-22 00:36] LABS: BUN/Creatinine Ratio 13 (6-26); Blood Urea Nitrogen 17 mg/dL (8-23); Calcium 8.9 mg/dL (8.6-10.3); Carbon Dioxide 22 mEq/L (23-29); Chloride 100 mEq/L (98-107); Glucose 94 mg/dL (70-105); Osmolality,Calculated 267 (280-300); Potassium 4.3 mEq/L (3.5-5.1); Sodium 128 mEq/L (136-145); eGFR For African Americans > 60 (> 60); eGFR For Non-African Americans 52 (> 60)
[2021-05-22 00:38] LABS: BUN/Creatinine Ratio 13 (6-26); Blood Urea Nitrogen 17 mg/dL (8-23); Carbon Dioxide 22 mEq/L (23-29); Chloride 101 mEq/L (98-107); Glucose 95 mg/dL (70-105); Magnesium 1.5 mg/dL (1.6-2.6); Osmolality,Calculated 267 (280-300); Phosphorous 2.2 mg/dL (2.7-4.5); Potassium 4.3 mEq/L (3.5-5.1); Sodium 128 mEq/L (136-145); eGFR For African Americans > 60 (> 60); eGFR For Non-African Americans 53 (> 60)
[2021-05-22 00:39] LABS: Troponin I < 0.03 ng/mL (< 0.04)
[2021-05-22] MEDS ORDERED: Magnesium Oxide 400 MG TABLET PO ONE (01:15)
[2021-05-22] MEDS: Fluticasone Propionate Nasal 50 MCG/SPRAY BOTTLE NS SCH ×2 (07:27→20:24)
[2021-05-22] MEDS: carvediloL 6.25 MG TABLET PO SCH ×2 (07:27→16:39)
[2021-05-22 10:21] LABS: Adenovirus Not Detected (Not Detect); Bordetella Pertussis Not Detected (Not Detect); Chlamydophila pneumoniae Not Detected (Not Detect); Coronavirus 229E Not Detected (Not Detect); Coronavirus HKU1 Not Detected (Not Detect); Coronavirus NL63 Not Detected (Not Detect); Coronavirus OC43 Not Detected (Not Detect); Human Metapneumovirus Not Detected (Not Detect); Human Rhinovirus/Enterovirus Not Detected (Not Detect); Influenza A Subtype 2009 H1 Not Detected (Not Detect); Influenza B Not Detected (Not Detect); Mycoplasma pneumoniae Not Detected (Not Detect); Parainfluenza Virus 1 Not Detected (Not Detect); Parainfluenza Virus 2 Not Detected (Not Detect); Parainfluenza Virus 3 Not Detected (Not Detect); Parainfluenza Virus 4 Not Detected (Not Detect); Respiratory Syncytial Virus DETECTED (Not Detect); SARS-CoV-2 Not Detected (Not Detect)
[2021-05-22] MEDS: Acetaminophen 325 MG TABLET PO PRN (16:39)
[2021-05-22] MEDS ORDERED: *HR* Warfarin 5 MG TABLET PO ONE (18:00)
[2021-05-22] MEDS: *HR* LORazepam 0.5 MG TABLET PO SCH (20:24)
[2021-05-23] MEDS: Acetaminophen 325 MG TABLET PO PRN
[2021-05-23 05:46] LABS: Magnesium 1.7 mg/dL (1.6-2.6); Phosphorous 2.6 mg/dL (2.7-4.5)
[2021-05-23 06:10] LABS: INR 1.7; Prothrombin Time 18.9 Seconds (9.4-12.1)
[2021-05-23] MEDS ORDERED: Tolvaptan 15 MG TABLET PO ONE (07:20)
[2021-05-23] MEDS: Fluticasone Propionate Nasal 50 MCG/SPRAY BOTTLE NS SCH ×2 (08:26→20:30)
[2021-05-23] MEDS: carvediloL 6.25 MG TABLET PO SCH ×2 (08:27→16:15)
[2021-05-23 08:31] LABS: BUN/Creatinine Ratio 16 (6-26); Blood Urea Nitrogen 15 mg/dL (8-23); Calcium 8.8 mg/dL (8.6-10.3); Carbon Dioxide 23 mEq/L (23-29); Chloride 94 mEq/L (98-107); Glucose 93 mg/dL (70-105); Osmolality,Calculated 259 (280-300); Potassium 4.3 mEq/L (3.5-5.1); Sodium 124 mEq/L (136-145); eGFR For African Americans > 60 (> 60); eGFR For Non-African Americans > 60 (> 60)
[2021-05-23] MEDS ORDERED: Warfarin perPT PO PRN (12:02)
[2021-05-23] MEDS ORDERED: *HR* Warfarin 5 MG TABLET PO ONE (18:00)
[2021-05-23] MEDS: *HR* LORazepam 0.5 MG TABLET PO SCH (20:30)
[2021-05-24 04:41] LABS: INR 1.8; Prothrombin Time 20.2 Seconds (9.4-12.1)
[2021-05-24 04:51] LABS: BUN/Creatinine Ratio 15 (6-26); Blood Urea Nitrogen 18 mg/dL (8-23); Calcium 9.3 mg/dL (8.6-10.3); Carbon Dioxide 25 mEq/L (23-29); Chloride 103 mEq/L (98-107); Glucose 85 mg/dL (70-105); Osmolality,Calculated 277 (280-300); Potassium 4.6 mEq/L (3.5-5.1); Sodium 133 mEq/L (136-145); eGFR For African Americans > 60 (> 60); eGFR For Non-African Americans 59 (> 60)
[2021-05-24 07:05] VITALS: BP 126/74; PULSE 68; TEMP 98; O2SAT 96
[2021-05-24] MEDS: carvediloL 6.25 MG TABLET PO SCH (08:19)
[2021-05-24] MEDS: Fluticasone Propionate Nasal 50 MCG/SPRAY BOTTLE NS SCH (08:20)
== END 2021-05-24 11:14 | disposition home or self-care (01) | DRG 641 ==
LOC: 2ANU → SUATTDRO 23:27
PROVIDERS: ADMIT Family Medicine; ATTEND Internal Medicine

== ENCOUNTER 2022-05-29 05:41 | Observation (INO) ==
[2022-05-29 07:08] LABS: Basophils % 0.3 %; Eosinophils # 0.2 K/mcL (0.0-0.6); Eosinophils % 1.8 %; Hematocrit 38.1 % (37.5-50.1); Hemoglobin 13.1 g/dL (12.9-16.9); Immature Granulocytes % 0.3 % (0-4); Lymphocytes # 2.7 K/mcL (0.6-4.6); Mean Corpuscular HGB Conc 34.4 g/dL (31.6-35.5); Mean Corpuscular Hemoglobin 30.3 pg (28.0-33.3); Mean Platelet Volume 10.3 fL (9.4-12.4); Monocytes # 0.8 K/mcL (0.0-1.3); Monocytes % 8.3 %; Neutrophils # 6.2 K/mcL (1.6-8.9); Platelet Count 206 K/mcL (140-400); Red Blood Count 4.33 M/mcL (4.19-5.50); Red Cell Distribution Width 13.4 % (11.5-14.5); Segmented Neutrophils % 62.3 %; White Blood Count 9.9 K/mcL (4.3-11.1)
[2022-05-29] MEDS ORDERED: Naloxone 0.4 MG/ML INJ IVP PRN (07:37)
[2022-05-29] MEDS ORDERED: Acetaminophen 325 MG TABLET PO PRN (07:37)
[2022-05-29] MEDS ORDERED: Ondansetron 4 MG/2 ML VIAL IVP PRN (07:37)
[2022-05-29] MEDS ORDERED: Iopamidol - 370 500 ML MLS IVP ONE (08:19)
[2022-05-29] MEDS ORDERED: Nitroglycerin 0.4 MG TAB.SUBL SL PRN (08:52)
[2022-05-29 09:47] LABS: INR 1.9; Prothrombin Time 21.3 Seconds (9.4-12.1)
[2022-05-29] MEDS: Cholecalciferol (D-3) 1,000 UNIT (25MCG) TABLET PO SCH (10:23)
[2022-05-29] MEDS: amLODIPine 5 MG TABLET PO SCH (10:24)
[2022-05-29] MEDS: *HR* LORazepam 0.5 MG TABLET PO SCH (10:25)
[2022-05-29] MEDS ORDERED: *HR* Midazolam HCl 2 MG/2 ML VIAL ONE ×2 (13:15→14:48)
[2022-05-29] MEDS ORDERED: *HR* FentaNYL (PF) 100 MCG/2 ML VIAL ONE (13:15)
[2022-05-29] MEDS ORDERED: Heparin 1,000 UNITS/500 mL 500 ML ONE ×2 (13:15→14:46)
[2022-05-29] MEDS ORDERED: 0.9 % Sodium Chloride 2,000 ML ONE (13:15)
[2022-05-29] MEDS ORDERED: *HR* Heparin 10,000 UNIT/10 ML VIAL ONE ×2 (13:15→13:57)
[2022-05-29] MEDS ORDERED: Nitroglycerin 1,000 MCG/5 ML VIAL IV ONE (13:16)
[2022-05-29] MEDS ORDERED: Iopamidol - 370 200 ML INFUS..BTL ONE (13:16)
[2022-05-29] MEDS: Fluticasone Propionate Nasal 50 MCG/SPRAY BOTTLE NS SCH ×2 (13:23→21:13)
[2022-05-29] MEDS: carvediloL 6.25 MG TABLET PO SCH ×2 (13:23→17:30)
[2022-05-29] MEDS ORDERED: *HR* Warfarin 2.5 MG TABLET PO SCH (18:00)
[2022-05-29] MEDS ORDERED: Warfarin perPT PO PRN (18:00)
[2022-05-30 03:44] LABS: Basophils % 0.4 %; Eosinophils # 0.3 K/mcL (0.0-0.6); Eosinophils % 2.4 %; Hematocrit 39.3 % (37.5-50.1); Hemoglobin 13.7 g/dL (12.9-16.9); Immature Granulocytes % 0.4 % (0-4); Lymphocytes # 1.9 K/mcL (0.6-4.6); Mean Corpuscular HGB Conc 34.9 g/dL (31.6-35.5); Mean Corpuscular Hemoglobin 30.7 pg (28.0-33.3); Mean Corpuscular Volume 88.1 fL (83.0-100.0); Mean Platelet Volume 10.8 fL (9.4-12.4); Monocytes # 1.2 K/mcL (0.0-1.3); Monocytes % 11.3 %; Neutrophils # 7.3 K/mcL (1.6-8.9); Platelet Count 207 K/mcL (140-400); Red Blood Count 4.46 M/mcL (4.19-5.50); Red Cell Distribution Width 13.7 % (11.5-14.5); Segmented Neutrophils % 67.5 %; White Blood Count 10.8 K/mcL (4.3-11.1)
[2022-05-30 03:53] LABS: INR 1.8; Prothrombin Time 19.8 Seconds (9.4-12.1)
[2022-05-30 04:04] LABS: BUN/Creatinine Ratio 14 (6-26); Blood Urea Nitrogen 14 mg/dL (8-23); Calcium 8.9 mg/dL (8.6-10.3); Carbon Dioxide 23 mEq/L (23-29); Chloride 105 mEq/L (98-107); Chol/HDL Ratio 5.5 (0-4.9); Cholesterol 230 mg/dL (< 200); Glucose 84 mg/dL (70-105); HDL Cholesterol 42 mg/dL (40-59); LDL Cholesterol,Calculated 174 mg/dL (< 100); Osmolality,Calculated 282 (280-300); Potassium 3.8 mEq/L (3.5-5.1); Sodium 136 mEq/L (136-145); Triglycerides 68 mg/dL (< 150); eGFR For African Americans > 60 (> 60); eGFR For Non-African Americans > 60 (> 60)
[2022-05-30] MEDS: amLODIPine 5 MG TABLET PO SCH (08:38)
[2022-05-30] MEDS: Cholecalciferol (D-3) 1,000 UNIT (25MCG) TABLET PO SCH (08:38)
[2022-05-30] MEDS: carvediloL 6.25 MG TABLET PO SCH ×2 (08:38→17:51)
[2022-05-30] MEDS: Fluticasone Propionate Nasal 50 MCG/SPRAY BOTTLE NS SCH (08:39)
[2022-05-30] MEDS: *HR* LORazepam 0.5 MG TABLET PO SCH (08:39)
[2022-05-30] MEDS ORDERED: Aspirin Enteric Coated 81 MG Tablet PO SCH (09:00)
[2022-05-30 11:40] VITALS: BP 154/82; PULSE 74; TEMP 99.2; O2SAT 97
[2022-05-30 12:58] LABS: Estimated Average Glucose 123 mg/dl; Hemoglobin A1C 5.9 %
[2022-05-30] MEDS ORDERED: *HR* Enoxaparin 120 MG/0.8 ML SYRINGE SQ ONE (13:53)
[2022-05-30] MEDS ORDERED: *HR* Warfarin 5 MG TABLET PO ONE (18:00)
== END 2022-05-30 17:55 | disposition home or self-care (01) ==
LOC: 2ANU 05:41 → EMEROOARM 05:41 → SUATTDRO 13:05 → 2ANU 13:42
PROVIDERS: ADMIT Internal Medicine; ATTEND Internal Medicine